=== PATIENT | male | born 1980 | race Caucasian/White ===

== ENCOUNTER 2024-03-09 12:20 | Outpatient (OUT) | payer BC, SELFPAY ==
[2024-03-09 12:45] LABS: Basophils Absolute Auto 0.1 10^3/uL (0.0-0.1); Basophils Percent Auto 0.9 % (0.2-2.0); Eosinophils Percent Auto 0.2 % (0.9-7.0); Hematocrit 47.5 % (42.0-54.0); Hemoglobin 16.2 g/dL (14.0-18.0); Immature Granulocytes Abs Auto 0.06 10^3/uL (0.00-0.03); Immature Granulocytes Pct Auto 0.6 % (0.0-0.5); Lymphocytes Absolute Auto 1.8 10^3/uL (1.2-3.8); Lymphocytes Percent Auto 19.1 % (20.5-60.0); Mean Corpuscular HGB Conc 34.1 g/dL (29.9-35.2); Mean Platelet Volume 8.8 fL (9.5-13.5); Monocytes Absolute Auto 0.3 10^3/uL (0.3-0.8); Monocytes Percent Auto 2.7 % (1.7-12.0); Neutrophils Absolute Auto 7.2 10^3/uL (1.4-6.5); Neutrophils Percent Auto 76.5 % (43.0-75.0); Platelet Count 353 10^3/uL (150-450); Red Blood Count 5.59 10^6/uL (4.70-6.10); White Blood Count 9.4 10^3/uL (4.0-11.0)
[2024-03-09 12:49] LABS: Erythrocyte Sedimentation Rate 92 mm/hr (<=15)
[2024-03-09 13:54] LABS: Alanine Aminotransferase 64 U/L (16-63); Albumin Level 4.1 g/dL (3.4-5.0); Alkaline Phosphatase 75 U/L (46-116); Anion Gap 15.3; Aspartate Amino Transferase 36 U/L (15-37); BUN Creatinine Ratio 17.6; Bilirubin Total 0.6 mg/dL (0.2-1.0); C Reactive Protein <0.50 mg/dL (<=0.50); Calcium 8.7 mg/dL (8.5-10.1); Carbon Dioxide 25.7 mmol/L (21.0-32.0); Chloride 100 mmol/L (98-107); Estimated GFR (African America >60 (>=60); Estimated GFR (Non-African Ame >60 (>=60); Globulin 4.1 g/dL; Glucose 111 mg/dL (74-106); Sodium 137 mmol/L (136-145); Total Protein 8.2 g/dL (6.4-8.2)
--- NOTE | 2024-03-09 15:41 | US_ITS ---
The [address] [address] Patient Name: MILAN MENDOZA MRN: [id number] date: 1980 Sex: M Assigned Patient Location: US Current Patient Location: Accession/Order Number: [id number] Exam Date: 03/09/2024 15:48 Report Date: 03/12/2024 10:00 At the request of: JORGE ALMONTE Procedure: US soft tissue head and neck EXAMINATION: US soft tissue head and neck HISTORY: Localized swelling, mass and lump neck R22.1 COMPARISON: No relevant comparison available. FINDINGS: Within the area of the patient's palpable lump(s) are several hypoechoic, slightly prominent lymph nodes which have lost their fatty hilum. Largest 2 are 2.8 x 0.8 x 1.5 cm and 1.7 x 0.6 x 1.1 cm. US/US soft tissue head and neck IMPRESSION: 1. Mild lymphadenopathy within the left neck corresponding to patient's palpable area. Clinical follow-up is recommended with repeat imaging if findings do not resolve. Electronically authenticated by: KATHRYN OROZCO Date: 03/12/2024 10:00
[2024-03-10 07:11] LABS: HBsAg Screen Negative (Negative); HCV Ab Non Reactive (Non Reactive); Hep A Ab, IgM Negative (Negative); Hep B Core Ab, IgM Negative (Negative)
[2024-03-12 13:10] LABS: ANA Direct Negative (Negative)
== END 2024-03-09 12:21 | disposition home or self-care (01) ==
LOC: US 12:22
PROVIDERS: PCP Family Medicine; Visit Provider Family Medicine
DX: R22.1 Localized swelling, mass and lump, neck (principal); M54.16 Radiculopathy, lumbar region; M54.12 Radiculopathy, cervical region; R20.2 Paresthesia of skin; R79.89 Other specified abnormal findings of blood chemistry
CPT/HCPCS: 36415; 76536; 80053; 80074; 85025; 85652; 86038; 86140

== ENCOUNTER 2024-03-30 12:00 | Outpatient (OUT) | payer BC, SELFPAY ==
--- NOTE | 2024-03-30 12:04 | MR_ITS ---
[address] [address] Patient Name: MILAN MENDOZA MRN: [facility]:[id number] date: 1980 Sex: M Assigned Patient Location: MRI Current Patient Location: MRI Accession/Order Number: [id number] Exam Date: 03/30/2024 12:20 Report Date: 04/02/2024 14:05 At the request of: JORGE ALMONTE Procedure: MR lumbar spine wo con EXAMINATION: MR lumbar spine wo con HISTORY: Radiculopathy Lumbar Region M54.16 COMPARISON: No relevant comparison available. TECHNIQUE: A variety of imaging planes and parameters were utilized for visualization of suspected pathology. FINDINGS: For the purposes of numbering, sagittal T2 image # 8 extends from the T11 vertebral body superiorly to the S2-S3 level inferiorly. PARASPINAL AREA: Normal with no visible mass. BONES: Normal alignment with no acute fracture or spondylolisthesis. Signal abnormality lower endplate of L5 superior endplate of S1, Modic 2 change. Degenerative spondylosis and facet osteoarthropathy CORD/CAUDA EQUINA: Normal caliber, contour, and signal intensity. DISC LEVELS: 12-L1: No significant disc/facet abnormality, spinal stenosis, or foraminal stenosis. L1-L2: Right paracentral disc herniation of the protrusion type with annular tear extending posteriorly up to 3.5 mm best seen on sagittal image 9. No central or foraminal stenosis L2-L3: No significant disc/facet abnormality, spinal stenosis, or foraminal stenosis. L3-L4: Moderate degenerative disc disease is present without visible neural impingement. L4-L5: Disc desiccation. No disc bulge or herniation. Posterior central annular tear. No central or foraminal stenosis L5-S1: Moderate to severe disc space narrowing with endplate sclerosis. Moderate disc/osteophyte complex and facet osteoarthropathy. Moderate bilateral foraminal stenosis MR/MR lumbar spine wo con IMPRESSION: Moderate degenerative changes L5-S1 resulting in moderate bilateral foraminal stenosis Electronically authenticated by: RIP DANIELSON Date: 04/02/2024 14:05
--- NOTE | 2024-03-30 12:04 | MR_ITS ---
[address] [address] Patient Name: MILAN MENDOZA MRN: [facility]:[id number] date: 1980 Sex: M Assigned Patient Location: MRI Current Patient Location: Accession/Order Number: [id number] Exam Date: 03/30/2024 12:20 Report Date: 04/02/2024 11:23 At the request of: JORGE ALMONTE Procedure: MR cervical spine wo con EXAMINATION: MR cervical spine wo con HISTORY: Radiculopathy Cervical Region M54.12 COMPARISON: No relevant comparison available. TECHNIQUE: A variety of imaging planes and parameters were utilized for visualization of suspected pathology. FINDINGS: The central canal is congenitally small CRANIOCERVICAL AREA: Normal foramen magnum with no Chiari malformation. PARASPINAL AREA: Normal with no visible mass. BONES: Normal alignment with no acute fracture, spondylolisthesis or bone edema. Moderate diffuse anterior posterior degenerative spondylosis CORD: Compression of the cervical cord at the C4-C6 level with increased signal. CERVICAL DISC LEVELS: C2-C3: Disc desiccation. Mild posterior disc/osteophyte complex. No central or foraminal stenosis C3-C4: Disc desiccation. Mild posterior degenerative spondylosis. No central or foraminal stenosis C4-C5: Moderate disc desiccation and disc space narrowing. Moderate posterior disc/osteophyte complex deforming the ventral spinal cord narrowing the central canal to 5.4 mm in anterior posterior dimension. Moderate bilateral foraminal stenosis secondary to facet osteoarthropathy C5-C6: Disc space narrowing and disc desiccation. Extensive posterior disc/osteophyte complex narrowing the central canal to 5.3 mm in anterior posterior dimension. Moderate to severe right and moderate left foraminal stenosis C6-C7: Disc space narrowing and disc desiccation. Mild posterior disc/osteophyte complex. Narrowing of the central canal to 8.4 mm in anterior posterior dimension. Moderate to severe bilateral foraminal stenosis C7-T1:. No significant disc/facet abnormality, spinal stenosis, or foraminal stenosis. 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
== END 2024-03-30 12:01 | disposition home or self-care (01) ==
LOC: MRI 12:00
PROVIDERS: PCP Family Medicine; Visit Provider Family Medicine
DX: R22.1 Localized swelling, mass and lump, neck (principal); M54.16 Radiculopathy, lumbar region; M54.12 Radiculopathy, cervical region; M51.36 Other intervertebral disc degeneration, lumbar region; M48.02 Spinal stenosis, cervical region
CPT/HCPCS: 72141; 72148